=== PATIENT | male | born 1950 | race Caucasian/White ===

== ENCOUNTER 2023-11-09 18:05 | Emergency (ER) | payer OTHER, SELFPAY ==
[2023-11-09 18:10] VITALS: BP 135/92
[2023-11-09 18:32] LABS: % Basophils 1.7 % (0-2); % Eosinophils 3.4 % (0-6); % Immature Granulocytes 0.2 % (0-0.5); % Lymphocytes 29.7 % (20.5-51.1); Absolute Basophils 0.1 10^3/uL (0-0.2); Absolute Eosinophils 0.1 10^3/uL (0-0.7); Absolute Lymphocytes 1.2 10^3/uL (1.2-3.4); Absolute Monocytes 0.7 10^3/uL (0.1-0.6); Hematocrit 38.9 % (39.0-52.0); Hemoglobin 13.5 g/dL (13.0-18.0); Mean Corp Hgb Conc. 34.7 g/dL (33.0-37.0); Mean Corpuscular Volume 83.5 fL (80.0-94.0); Mean Platelet Volume 9.5 fL (7.4-10.4); Nucleated Red Blood Cells % 0 % (-); Platelet Count 198 10^3/uL (130-400); Red Blood Cell Count 4.66 10^6/uL (4.70-6.10); Red Cell Dist. Width 13.4 % (11.5-14.5); White Blood Cell Count 4.1 10^3/uL (4.8-10.8)
[2023-11-09 18:47] LABS: ALT (SGPT) 27 U/L (0-50); AST (SGOT) 37 U/L (17-59); Albumin 4.2 g/dl (3.5-5.0); Alkaline Phosphatase 78 U/L (38-126); Blood Urea Nitrogen 20 mg/dl (9-20); Carbon Dioxide 31 mmol/L (22-30); Chloride 96 mmol/L (98-107); Glucose 96 mg/dl (70-99); Potassium 4.1 mmol/L (3.5-5.1); Sodium 132 mmol/L (135-145); Total Bilirubin 0.6 mg/dl (0.2-1.3); Total Protein 7.3 g/dl (6.3-8.2); eGFR > 60.00
--- NOTE | 2023-11-09 19:43 | ED.GENMED ---
History of Present Illness
General
Chief Complaint: Dizziness
Source: patient
Exam Limitations: none
Time Seen by Provider: 11/09/23 19:26
Nursing documentation reviewed up to this point in time: agreed with
Travel History
Have you had any contact with someone who has COVID-19?: No
Do you have any symptoms of coronavirus? Fever > 100 degrees, chills, cough, shortness of breath, sore throat, loss of taste or smell, muscle aches, or headache?: No
History of Present Illness
History of Present Illness:
Patient is a 73-year-old who presents to the ER with family patient complains of feeling lightheaded since waking up this morning. She denies vertigo sensation room spinning sensation. Denies any chest pain shortness of breath. Denies any recent
illness fever chills. She does mention that she recently stopped taking Klonopin 2 nights ago. She has been on Klonopin for years for sleep but abruptly stopped it. She as per family is steady on her feet. She denies any headache upper or lower
extremity numbness tingling/weakness .
Patient denies any associated chest pain shortness of breath
Review of Systems
Review of Systems
Allergies reviewed?: Yes
All Other Systems: ROS reviewed and negative except as documented in HPI and ROS
Constitutional: Reports no symptoms; Denies fever, fatigue or chills
Respiratory: Reports no symptoms
Cardiac: Reports no symptoms
ABD/GI: Reports no symptoms
: Reports no symptoms
Musculoskeletal: Reports no symptoms
Skin: Reports no symptoms
Neurological: Reports other (feels lightheaded denies vertigo symptoms)
Psychiatric: Reports no symptoms
Phy Exam
General Physical Exam
General Presentation: no apparent distress
General age: appears stated age
General Skin: warm and dry
General Habitus: normal
General Mental: alert
General Hydration: appears well hydrated
Cardiovascular Exam
Cardiovascular Exam: regular rate/rhythm, no murmur and normal peripheral pulses
Pulmonary Exam
Pulmonary Exam: lungs clear and no respiratory distress
Neurological Exam
Neurological Exam: alert, oriented x3, no motor deficits, no sensory deficits and speech normal
Musculoskeletal Exam
Musculoskeletal Exam: full ROM
Skin Exam
Skin Exam: normal color and warm/dry
Psychiatric Exam
Psychiatric Exam: normal mood/affect
Course
Orders/Labs/Results
Orders:
Orders
11/09/23 18:19
Urinalysis Reflex To Culture Urgent
Date Specimen was Collected: 11/09/23
Time Specimen was Collected: 18:19
11/09/23 18:24
CMP [Comprehensive Metabolic Panel] Urgent
Complete Blood Count/With Diff Urgent
11/09/23 20:16
Orthostatic VS- Treatment ONCE
11/09/23 20:36
Clonazepam [Klonopin] 0.5 mg PO NOW STA
Abnormal Lab Results
11/09/23
18:24
WBC 4.1 L 10^3/uL
(4.8-10.8)
RBC 4.66 L 10^6/uL
(4.70-6.10)
Hct 38.9 L %
(39.0-52.0)
Absolute Monos (auto) 0.7 H 10^3/uL
(0.1-0.6)
Monocytes % 17.0 H %
(1.7-9.3)
Sodium 132 L mmol/L
(135-145)
Chloride 96 L mmol/L
(98-107)
Carbon Dioxide 31 H mmol/L
(22-30)
11/09/23 18:24
11/09/23 18:24
Vital Signs
Initial and Last Documented VS:
Initial Vital Signs
Temp Pulse Resp BP Pulse Ox
98.0 F 76 18 135/92 96
11/09/23 18:10 11/09/23 18:10 11/09/23 18:10 11/09/23 18:10 11/09/23 18:10
Last Documented Vital Signs
Temp Pulse Resp BP Pulse Ox
98.0 F 76 18 135/92 96
11/09/23 18:10 11/09/23 18:10 11/09/23 18:10 11/09/23 18:10 11/09/23 18:10
Trouble Locator Test Desk consulted with Physician
Trouble Locator Test Desk consulted with physician?: Yes
Name of Physician Consulted: chaya
MDM/Problems Addressed
Differential Diagnosis Includes:
not limited to: dizziness, side effect of abruptly stopping medication, dehydration electrolyte abnormality
MDM/Problems Addressed:
Patient presented to the ER with complaints of lightheadedness that started this morning. She had no associated chest pain shortness of breath. She has no cardiac history. She abruptly stopped her Klonopin which she has been on for years 2 nights
ago. She normally takes it at night for sleep. She is on 0.5 mg daily. She denies any type of vertigo denies any headache no trauma. She is no acute distress denies any recent fever chills illness. She is afebrile here and very well-appearing
negative orthostatic tilt. Labs unremarkable. Patient has been monitored here normal sinus rhythm on cardiac monitoring. Case discussed with ED physician likely from abruptly discontinuing Klonopin will give dose here in the ER I did advise and
educate patient on the importance of not abruptly stopping this type of medication and discussed close outpatient follow-up with pcp
*Critical Care Note
Total Time (30-74mins, 75-104mins- exclusive of procedures): Not Applicable
ED Attending Note
-
Portions of this chart may have been created with voice recognition software.� Occasional wrong word or��sound alike� substitutions may have occurred due to the inherent limitations of voice recognition software.
Discharge Plan
Departure
Patient Disposition: Home (Routine Discharge)
Date of Disposition: 11/09/23
Time of Disposition: 20:37
Patient with high blood pressure during this ER visit?: Yes
Condition: Fair
Covid-19: Not Applicable
Discharge Problem:
Lightheadedness
Instructions: Dizziness, Adult ED, BLOOD PRESSURE
Referrals:
Lorenzo Kennedy, DO [Family Provider] -
Activity Restrictions/Additional Instructions:
As discussed your symptoms are likely from abruptly stopping your Klonopin. You were given 1 dose here in the ER . you do not need to take another dose tonight at bedtime. You may take daily as directed at bedtime. follow-up with family doctor
for reevaluation in the next several days and return if any worsening of symptoms
Interventions
Interventions:
ED- Neurological Assessment Last Done: 11/09/23 20:45
ED Swallowing Screen Last Done: 11/09/23 20:45
Discharge Date and Time
Print Language: SWISS
[2023-11-09 20:23] VITALS: BP 127/53; BP 139/69; BP 142/81; PULSE 61; PULSE 75; PULSE 76
[2023-11-09] MEDS: KLONOPIN 0.5 MG PO (20:48)
[2023-11-09 20:58] VITALS: BP 139/69
[2023-11-09 21:14] LABS: Urine Albumin Negative (Neg - Trace); Urine Bilirubin Negative (Negative); Urine Character Clear (Clear); Urine Color Yellow; Urine Glucose Negative (Negative); Urine Ketone Negative (Negative); Urine Leukocyte 1+ (Negative); Urine Nitrite Negative (Negative); Urine Occult Blood Negative (Negative); Urine Specific Gravity 1.015 (<1.030); Urine Urobilinogen Negative (Neg - 1+); Urine pH 6.5 (5.0-9.0)
[2023-11-09 21:24] LABS: Urine White Cell 16-20 /HPF (0-5)
[2023-11-09 21:26] LABS: Urine Bacteria Few (Negative); Urine Red Blood Cell 0-2 /HPF (0-2)
== END 2023-11-09 21:12 | disposition home or self-care (01) ==
LOC: EMR 18:05
PROVIDERS: Emergency Medicine; EMERGENCY PHYSICIAN Emergency Medicine; FAMILY PHYSICIAN Family Medicine
DX: R42 Dizziness and giddiness (principal)
CPT/HCPCS: 99283; 80053; 81003; 81015; 85025; 87086